=== PATIENT | female | born 1990 | race Two or more races ===

== ENCOUNTER 2022-10-21 | Outpatient (CLI) | payer OTHER | END 2022-10-21 00:15 | disposition home or self-care (01) | LOC: PPH VACUNA | PROVIDERS: ATTEND Emergency Medicine Pediatric Emergency Medicine | DX: Z23 Encounter for immunization (principal) ==

== ENCOUNTER 2022-11-30 09:02 | Emergency (ER) | payer OTHER ==
[~2022-11-30] VITALS: Ht 180.3 cm; Wt 58.1 kg
== END 2022-11-30 16:26 | disposition home or self-care (01) ==
LOC: ER 09:02
DX: J10.1 Influenza due to other identified influenza virus with other respiratory manifestations (principal); Z20.822 Contact with and (suspected) exposure to COVID-19

== ENCOUNTER 2023-11-24 10:50 | Outpatient (CLI) | payer OTHER | END 2023-11-24 11:30 | disposition home or self-care (01) | LOC: PPH VACUNA 10:50 | PROVIDERS: ATTEND Emergency Medicine Pediatric Emergency Medicine | DX: Z23 Encounter for immunization (principal) ==

== ENCOUNTER 2024-01-06 08:23 | Outpatient (CLI) | payer OTHER | END 2024-01-06 08:29 | disposition home or self-care (01) | LOC: RAD 08:23 | PROVIDERS: ATTEND Orthopaedic Surgery | DX: M25.461 Effusion, right knee (principal) ==